=== PATIENT | female | born 1955 | race Caucasian/White ===

== ENCOUNTER 2016-05-16 19:50 | Emergency (ER) | payer SELFPAY ==
[~2016-05-16] VITALS: Ht 157.5 cm; Wt 85.6 kg
[2016-05-16 19:53] VITALS: Ht 157.5 cm; Wt 85.6 kg
[2016-05-16] MEDS ORDERED: KETOROLAC 30 MG INJ IM STA (22:18)
--- NOTE | 2016-05-16 22:51 | ERD ---
ER Documentation Chief Complaint Date/Time DATE: 05/16/16 TIME: 22:50 Chief Complaint fell while getting off bus at 1900, c/o pain right shoulder/elbow HPI This is a 60-year-old female with a history of diabetes type 2 and hypertension presenting the emergency department complaining of right shoulder and right elbow pain status post ground-level fall that occurred at 1900 coming outside of a bus. Patient states the pain is moderate in severity and she has difficulty moving her right shoulder. Patient did not take any medications for pain. ROS All systems reviewed and are negative except as per history of present illness. Medications Home Meds Active Scripts Ibuprofen* (Ibuprofen*) 600 Mg Tablet, 600 MG PO Q6H Y for PAIN, #30 TAB Prov:JENSEN BIANCHI PA-C 05/16/16 Hydrocodone/Acetaminophen ([place] 5-325 Tablet) 1 Each Tablet, 1 TAB PO Q6H Y for PAIN, #20 TAB Prov:JENSEN BIANCHI PA-C 05/16/16 Allergies Allergies: Coded Allergies: No Known Drug Allergies (Verified Allergy, Unknown, 05/16/16) PMhx/Soc History of Surgery: Yes (LEFT OOPHORECTOMY,RIGHT INGUINAL HERNIA) Anesthesia Reaction: No Hx Neurological Disorder: No Hx Respiratory Disorders: No Hx Cardiac Disorders: Yes (HTN, HYPERLIPIDEMIA) Hx Psychiatric Problems: No Hx Miscellaneous Medical Probl: Yes (DM, CERVICAL CA) Hx Alcohol Use: No Hx Substance Use: No Hx Tobacco Use: No Smoking Status: Never smoker Physical Exam Vitals Vital Signs Date Time Temp Pulse Resp B/P Pulse Ox O2 Delivery O2 Flow Rate FiO2 05/16/16 19:53 98.1 85 20 159/89 98 Physical Exam General: WD/WN, in no apparent distress, non-toxic appearing HENT: NC/AT Eyes: Conjunctiva normal Neck: Supple Pulm: Clear to auscultation, normal labored breathing; no wheezing/rales/ rhonchi heard CV: Good capillary refill GI: Non-distended, no guarding Back: No masses Ext: Tender palpation right elbow, restricted range of motion due to pain, tender palpation on the right shoulder, patient did not want to move her extremity due to the pain in her right elbow Neuro: Moves on all fours Skin: intact Psych: Normal mood Results 24 hrs Current Medications Medications (Trade) Dose Ordered Sig/Vilma Route PRN Reason Start Time Stop Time Status Last Admin Dose Admin Ketorolac Tromethamine (Toradol) 30 mg ONCE STAT IM 05/16/16 22:18 05/16/16 22:22 DC 05/16/16 22:50 Procedures/MDM This is a 60-year-old female with a history of diabetes type 2 and hypertension presenting the emergency department complaining of right shoulder and right elbow pain status post ground-level fall that occurred at 1900 coming outside of a bus. On examination patient was neurovascular intact, she had full radial/ median/nerve motor and sensation intact. Patient did have a second range of motion due to the pain. X-ray of the right elbow and right shoulder were done and radiologist stated - XR elbow (3 view): Small ossific density adjacent to the coronoid process of the proximal ulna which may represent a small avulsion fracture versus osteophyte. Otherwise negative examination. XR shoulder (2 view): Deformity of the right humeral neck compatible with an impacted fracture. Fracture likely involves the humeral head. No dislocation of the humeral head relative to the glenoid. Patient likely has a small avulsion fracture of the right elbow and a i mild impacted right humeral neck fracture. Patient did not have any neuro deficits, no evidence of any open lacerations. Patient was placed in a long-arm splint and given a sling. She was given Toradol for the pain in the ED. I discussed the patient to follow-up with an orthopedist within the next couple days. I discussed return to the ER for any worsening signs or symptoms including any neuro deficits. Prescriptions for [place] and ibuprofen were provided. Patient understands and agrees with this plan Departure Diagnosis: Primary Impression: Elbow fracture, right Additional Impressions: Fall from ground level Fracture of neck of humerus Condition: Stable JENSEN BIANCHI PA-C May 16, 2016 22:51
--- NOTE | 2016-05-16 23:24 | RADRPT ---
PROCEDURE: XR Right Elbow. CLINICAL INDICATION: Pain. TECHNIQUE: AP, lateral and oblique views of the right elbow performed. COMPARISON: None. FINDINGS: There is a small ossific density adjacent to the coronoid process of the proximal ulna. There is no other potential fracture. Joint relationships are maintained. Bone mineralization is within malika l limits. There is no posterior fat pad sign. Soft tissues unremarkable. IMPRESSION: Small ossific density adjacent to the coronoid process of the proximal ulna which may represent a sm all avulsion fracture versus osteophyte. Otherwise negative examination. RPTAT: HMVK .Jp Mendoza MD, Date Time Electronically viewed and signed by .Jp Mendoza MD, MD on 05/16/2016 23:24 .K/
[2016-05-16] MEDS ORDERED: HYDR-906 PO (23:28)
[2016-05-16] MEDS ORDERED: IBUP-1542 PO (23:28)
--- NOTE | 2016-05-16 23:40 | RADRPT ---
PROCEDURE: XR Right Shoulder. CLINICAL INDICATION: Ground-level fall TECHNIQUE: Three views of the right shoulder are available for review. COMPARISON: None available FINDINGS: There is deformity of the right humeral neck compatible with an impacted fracture. Fracture humeral head is suspected. There is no dislocation of the glenohumeral joint. There are mild hypertrophic c hanges of the acromioclavicular joint. The visualized portions of the right clavicle and upper right rib cage are unremarkable. No radiopaque foreign body is identified. Bone mineralization is withi n normal limits. Soft tissues are unremarkable. IMPRESSION: Deformity of the right humeral neck compatible with an impacted fracture. Fracture likely involves t he humeral head. No dislocation of the humeral head relative to the glenoid. RPTAT: HMVK .Jp Mendoza MD, MD Date Time Electronically viewed and signed by .Jp Mendoza MD, on 05/16/2016 23:40 .K/
[2016-05-17 00:50] VITALS: BP 155/87; PULSE 75; RESP 20; TEMP 98
== END 2016-05-17 00:54 | disposition home or self-care (01) ==
LOC: FTE 19:50
DX: S42.211A Unspecified displaced fracture of surgical neck of right humerus, initial encounter for closed fracture (principal); I10 Essential (primary) hypertension; E11.9 Type 2 diabetes mellitus without complications; V76.4XXA Person boarding or alighting from bus injured in collision with other nonmotor vehicle, initial encounter; Z85.41 Personal history of malignant neoplasm of cervix uteri
CPT/HCPCS: 29105; 73030; 73080; 96372; 99284; J1885